=== PATIENT | female | born 1980 | race African-American/Black ===

== ENCOUNTER 2016-11-06 20:49 | Emergency (ER) | payer OTHER, MEDICAID ==
[~2016-11-06 20:49] MED LIST: MACR100C2 PO
[2016-11-06 21:30] VITALS: RESP 18
--- NOTE | 2016-11-06 21:40 | PD ---
HPI Travel History International Travel<30 Days: No Contact w/Intl Traveler<30Days: No Known Affected Area: No History of Present Illness HPI This patient is a 36-year-old 5 para 4004 EDC is February 12, 2017 presently at 26 weeks gestation she presents with chief complaint of pressure in her suprapubic area for 3 weeks no rupture of membranes no vaginal bleeding the baby is active headache right now but no visual changes mild nausea no vomiting she has increased frequency urgency mild dysuria no fever or chills care with the [facility] and the [facility] she denies any problems during the other than being on blood pressure medicine Aldomet 250 mg by mouth twice a day History Past Medical History Narrative Medical Patient is allergic to Ambien and 1 other medication that she does sleep she can 't think of the name of it Hypertension Aldomet 250 by mouth twice a day Asthma Obstetric History Obstetric History First baby born in 1994 female 6 lbs. 13 oz. vaginal delivery uncomplicated second baby born 2004 male weight 5 lbs. 15 oz. vaginal delivery born at 37 weeks Third baby born January 2006 male infant weight 6 lbs. 3 oz. vaginal delivery Fourth baby born August 2011 male infant weight 7 pounds vaginal delivery Past Surgical History Surgical History: No Previous Surgery Family History Narrative Family History Diabetes hypertension heart disease Social History Alcohol Use: No Tobacco Use: No Substance Abuse: No Allergies-Medications (Allergen,Severity, Reaction): Coded Allergies: Demerol (Verified Allergy, Intermediate, HALLUCINATIONS, VOMITING, ITCHING , 06/23/16) Ambien (Verified Adverse Reaction, Intermediate, N&V, 06/23/16) NAUSEA/VOMITING Home Meds Active Scripts Nitrofurantoin Monohydrate Macrocrystals (Macrobid)100 Mg [id number] Mg PO BID 10 Days Ref 0 Prov:Gabriela Germain MD 06/23/16 Review of Systems Gastrointestinal: Abdominal Pain (pressure in her lower abdomen) Physical Exam Narrative GENERAL: Well-nourished, well-developed patient. Alert oriented 3 and cooperative in no acute distress SKIN: Warm and dry. HEAD: Normocephalic and atraumatic. EYES: No scleral icterus. No injection or drainage. ENT: No nasal drainage noted. Mucous membranes pink. Airway patent. NECK: Supple, trachea midline. No JVD. CARDIOVASCULAR: Regular rate and rhythm without murmurs, gallops, or rubs. RESPIRATORY: Breath sounds equal bilaterally. No accessory muscle use. ABDOMEN/GI gravid consistent with approximately 26 weeks Gravid to [-] weeks size 26 Fundal Height: [-] GENITOURINARY: Speculum exam is done no fluid no blood frothy white discharge wet prep is done External Genitalia: intact and normal in appearance BUS glands: [-] Cervix: [-] Posterior firm Dilatation: [-] Closed Effacement: [-] 0 Station: [-] Ballotable Presentation: [-] Breech Membranes: [intact No contractions seen FHT's: Category: [-] Baseline: [-] 150 Reactive: [-] Variability: [-] Decels: [-] EXTREMITIES: No cyanosis or edema. 2+ reflexes NEUROLOGICAL: Awake and alert. Motor and sensory grossly within normal limits. Five out of 5 muscle strength in all muscle groups. Normal speech. Data Data Vital Signs Reviewed: Yes (blood pressure 122/74 pulse is 96 she is afebrile) Orders Vital Signs (Adult) .ON ADMISSION (11/06/16 21:31) ^ Labor Status (11/06/16 21:31) Urinalysis - C+S If Indicated (11/06/16 21:31) ^ Hydration (11/06/16 21:31) Fibronectin (11/06/16 21:31) Wet Prep Profile (11/06/16 21:31) Labs Bedside ultrasound is done the BPD is 6.19 equaling 25 weeks and 1 day That equals an EDC of February 18, 2017 Fundal grade 2 placenta no abruption no previa heart rate in the 150s difficulty keeping the baby on the monitor Baby is very active MDM Medical Record Reviewed: No (no records available) Interpretation(s) 36-year-old at 26 weeks Not in labor Rule out UTI Pressure may be related to breech presentation Rule out vaginitis Narrative Course / MDM Wet prep is negative fibronectin is negative Urinalysis is negative Stable heart rate No contractions Patient is sleeping We'll discharge patient home kick counts Is to keep her next appointment With the [facility] Plan External monitoring By mouth fluid hydration Urinalysis Wet prep fibronectin Reevaluation Diagnosis Diagnosis: Primary Impression: 26 weeks gestation of Additional Impressions: Chronic hypertension Banner Jenkins' deanna Disposition: 01 DISCHARGE HOME Condition: Stable Julia Lund MD Nov 06, 2016 21:39
[2016-11-06 22:22] LABS: BLOOD, URINE NEG (NEG); COMMENT (UR) CULT NOT INDICATED; CULTURE IF INDICATED CULT NOT INDICATED; GLUCOSE,URINE NEG (NEG); KETONE, URINE NEG (NEG); NITRITE,URINE NEG (NEG); SQUAMOUS EPITHELIAL CELL URINE 3 /hpf (0-5); URINE COLOR YELLOW (YELLW/STRAW)
== END 2016-11-07 00:18 | disposition home or self-care (01) ==
LOC: HOBED 20:49
DX: O47.9 False labor, unspecified (principal); I10 Essential (primary) hypertension; Z3A.26 26 weeks gestation of pregnancy
CPT/HCPCS: 76815; 81001; 82731; 87210

== ENCOUNTER 2017-04-23 10:53 | Emergency (ER) | payer OTHER, MEDICAID ==
[~2017-04-23] VITALS: Ht 149.9 cm; Wt 80.0 kg
[2017-04-23 10:55] VITALS: BP 169/82; PULSE 74; RESP 17; TEMP 98; O2SAT 99
--- NOTE | 2017-04-23 11:12 | PD ---
HPI Chief Complaint: Musculoskeletal Complaint Time Seen by Provider: 11:07 Travel History International Travel<30 days: No Contact w/Intl Traveler<30days: No Traveled to known affect area: No History of Present Illness HPI 37 year-old female presents there is very for evaluation left wrist pain. Pain is an ache, constant, worse when making a fist or moving her wrist laterally. Patient denies any injury. She does frequently lift her car seat carrier and her baby on that side. Denies fever or chills. No alterations in sensation. Range of motion is is only limited by pain. Pain does not radiate anywhere. It is moderate in severity. Has no other symptoms reported. History Past Medical Histgory Hx Cancer: No Hx Chemotherapy: No Social History Alcohol Use: No Tobacco Use: No Allergies-Medications (Allergen,Severity, Reaction): Coded Allergies: meperidine (Unverified Allergy, Intermediate, HALLUCINATIONS, VOMITING, ITCHING, 04/23/17) tomato (Verified Allergy, Intermediate, ITCHING, 04/23/17) zolpidem (Unverified Adverse Reaction, Intermediate, N&V, 04/23/17) NAUSEA/VOMITING Reported Meds & Prescriptions Reported Meds & Active Scripts Active Macrobid (Nitrofurantoin Monoh/Nitrofur Macro) 100 Mg Cap 100 Mg PO BID 10 Days Review of Systems Except as stated in HPI: all other systems reviewed are Neg Physical Exam Narrative GENERAL: Well-nourished, well-developed female patient, ambulatory no acute distress. SKIN: Focused skin assessment warm/dry. HEAD: Normocephalic. EYES: No scleral icterus. No injection or drainage. NECK: Supple, trachea midline. No JVD or lymphadenopathy. CARDIOVASCULAR: Regular rate and rhythm without murmurs, gallops, or rubs. RESPIRATORY: Breath sounds equal bilaterally. No accessory muscle use. MUSCULOSKELETAL: No cyanosis, or edema. 5+ equal orchardist strength bilateral upper extremities. Patient does report pain elicited in the lateral wrist when doing this. Tenderness elicited palpation along the lateral wrist. No deformity. Pain is exacerbated with lateral movement of the wrist and with palpation up the lateral forearm. Distal pulses are palpable. Cap refill within normal limits. BACK: Nontender without obvious deformity. No CVA tenderness. Data Data Last Documented VS Vital Signs Date Time Temp Pulse Resp B/P (MAP) Pulse Ox O2 Delivery O2 Flow Rate FiO2 04/23/17 10:55 98.0 74 17 169/82 (111) 99 Room Air MDM Medical Screen Exam Complete: Yes Emergency Medical Condition: No Differential Diagnosis LUE DE QUERVAINS TENDINITIS Narrative Course 37 year-old female presents to the emergency department for evaluation left wrist pain. Pain is consistent with a tendinitis, likely due from overuse and frequent picking up of the car seat carrier. I encouraged patient to apply a brace, take [id number] NSAID therapy, and follow-up with her primary care provider. At this time there are no urgent or emergent needs for medical intervention identified. A medical screening exam was performed: At the time of evaluation the presenting medical condition was determined not to be of an emergent nature. The patient was given the option of receiving additional care, but declined. Patient was given options for additional community resources from which to obtain care. The Patient Has Been advised to seek medical attention for their presenting complaint. The patient has been advised to return to the ER at any time if an emergent condition develops. Primary Impression: Encounter for medical screening examination Condition: Stable Hilda Nova Apr 23, 2017 11:12
== END 2017-04-23 11:20 | disposition left against medical advice (07) ==
LOC: NEPK 10:53
DX: M25.532 Pain in left wrist (principal)
CPT/HCPCS: 99281